=== PATIENT | female | born 1960 | race Caucasian/White ===

== ENCOUNTER 2019-12-03 06:05 | Observation (INO) ==
--- NOTE | 2019-11-16 10:53 | PAT Medication Instructions ---
Medication Instructions Date of Service November 16, 2019 Home Medications atorvastatin 10 mg PO DAILY clindamycin HCl 150 mg PO Q6H duloxetine 60 mg PO BID ibuprofen 800 mg PO Q6H PRN lamotrigine 100 mg PO DAILY naloxegol [Movantik] 25 mg PO QAM omeprazole 40 mg PO oxycodone-acetaminophen 1 tab PO Q6H PRN pregabalin 200 mg PO TID trazodone 100 mg PO HS umeclidinium-vilanterol [Anoro Ellipta] 1 inh INHALATION DAILY Continue as directed clindamycin HCl 150 mg PO Q6H ASK your surgeon for instructions ibuprofen 800 mg PO Q6H PRN DO NOT take the morning of surgery naloxegol [Movantik] 25 mg PO QAM Take morning of surgery With a small sip of water, OTHERWISE NOTHING TO EAT OR DRINK AFTER MIDNIGHT: atorvastatin 10 mg PO DAILY duloxetine 60 mg PO BID lamotrigine 100 mg PO DAILY omeprazole 40 mg PO daily oxycodone-acetaminophen 1 tab PO Q6H PRN (okay to take up to 4 hours prior to surgery if needed) pregabalin 200 mg PO TID umeclidinium-vilanterol [Anoro Ellipta] 1 inh INHALATION DAILY Take evening before surgery duloxetine 60 mg PO BID oxycodone-acetaminophen 1 tab PO Q6H PRN (if needed) pregabalin 200 mg PO TID trazodone 100 mg PO HS Other Notes If you have any questions please call us at [phone] or [phone] or [phone] or [phone]
--- NOTE | 2019-11-19 11:42 | Anesthesiology Consultation ---
Date of Service November 19, 2019 Assessment & Plan (1) Encounter for pre-operative examination: - Awaiting review of preop testing (labs, EKG, CXR). Chart Review Chart Review: Patient seen in Pre Admission Testing Teaching & Discussion Pre-Anesthesia Teaching/Discussion Notes: Instructed NPO after midnight before surgery,except medications with 15 cc of water. Medication instructions provided according to the PAT guidelines. History Surgery Operation Date: 12/03/19 10:20 Proposed Procedures p C5-C6 Anterior Cervical Discectomy Fusion - Eusebio Jamison DO Height/Weight Height: 5 ft 2 in Weight: 79 kg Allergies Allergy/AdvReac Type Severity Reaction Status Date / Time tetanus toxoid, adsorbed Allergy Unknown unknown Verified 11/12/19 12:05 Medications Home Medications Medication Instructions Recorded Confirmed Last Taken atorvastatin 10 mg PO DAILY 11/12/19 11/12/19 Unknown clindamycin HCl 150 mg PO Q6H 11/12/19 11/12/19 Unknown duloxetine 60 mg PO BID 11/12/19 11/12/19 Unknown ibuprofen 800 mg PO Q6H PRN 11/12/19 11/12/19 Unknown lamotrigine 100 mg PO DAILY 11/12/19 11/12/19 Unknown naloxegol [Movantik] 25 mg PO QAM 11/12/19 11/12/19 Unknown omeprazole 40 mg PO DAILY 11/12/19 11/12/19 Unknown oxycodone-acetaminophen 1 tab PO Q6H PRN 11/12/19 11/12/19 Unknown pregabalin 200 mg PO TID 11/12/19 11/12/19 Unknown trazodone 100 mg PO HS 11/12/19 11/12/19 Unknown umeclidinium-vilanterol [Anoro 1 inh INHALATION DAILY 11/12/19 11/12/19 Unknown Ellipta] Past Medical History Medical History (Updated 11/19/19 @ 12:16 by Josie Saenz) Anxiety Chronic obstructive pulmonary disease stable Chronic pain neck pain with left arm/hand radiation Depression GERD (gastroesophageal reflux disease) controlled Hyperlipidemia Obesity Postoperative anemia with most recent back surgery (did not reach threshold needed for transfusion per patient) Exercise / Class Metabolic Activity III < 4 Walking/Shop/Light housework Past Family History Family History Mother Family history of diabetes mellitus Brother Family history of diabetes mellitus Brother Family history of diabetes mellitus Sister Family history of diabetes mellitus Past Surgical History Surgical History History of back surgery X3 History of X3 History of dental surgery 11/06/2019 =- HAD ALL TEETH PULLED [facility] Hx of total hysterectomy Past Anesthesia History No Hx of Anesthesia Complications (except PONV) and No Family Hx of Anesthesia Complications History of PONV History of PONV and Hx of Motion Sickness Social History Smoking Status: Current every day smoker tobacco type: cigarettes and e-cigarettes Smoking cigarettes per day: 5 cigarettes/day + e-cigarettes (tobacco use x 30+ years) Do You Dip or Chew Tobacco: No Hx Alcohol Use: No Hx Substance Use: No Review of Systems Controlled reflux. Patient denies chest pain, shortness of breath, cough, wheezing, palpitations. Physical Exam Vital Signs VITALS BP 139/89 P 76 TEMP 98.0 SP02 95%RA RESP 18 PHYSICAL Full neck and c-spine range of motion (+ cervicalgia with extension). Full TMJ range of motion. TMD 3 finger breaths Mallampati Score 3 Dentition: s/p 15 dental extractions 10/2019- reason for clindamycin which will be completed prior to surgery (+ stitches to come out 11/20)/surgeon office made aware Lungs: clear throughout to auscultation Cardiac: regular rate and rhythm, no murmurs noted Spine: normal Carotid arteries: negative bruit Extremities: no edema
--- NOTE | 2019-11-19 12:42 | XRay Report ---
TWO VIEW CHEST CLINICAL HISTORY: Preoperative examination. FINDINGS: PA and lateral chest radiographs are compared to study dated 06/18/2016. The cardiomediastin al silhouette is unremarkable. There is mild bibasilar atelectasis. The lungs and pleural spaces are otherwise clear. There is no pneumothorax. The skeletal structures are osteopenic. The bony thorax ap pears intact. IMPRESSION: No active disease in the chest. ACT 112: Negative or not required by law. Electronically signed by: Nicola Alvares M.D. 11/19/2019 12:41 PM
[2019-11-19 13:00] LABS: Hematocrit (blood only) 41.6 % (37-47); Mean Corpuscular Hemoglobin 30.7 pg (25-34); Mean Corpuscular Hgb Conc 33.7 g/dL (32-36); Mean Corpuscular Volume 91.2 fL (80-100); Mean Platelet Volume 9.8 fL (7.4-10.4); Platelet Count 247 K/uL (130-400); RDW Coefficient of Variation 13.8 % (11.5-14.5); RDW Standard Deviation 45.7 fL (36.4-46.3); Red Blood Count 4.56 M/uL (4.2-5.4); White Blood Count 13.66 K/uL (4.8-10.8)
[2019-11-19 13:14] LABS: Partial Thromboplastin Ratio 0.8; Partial Thromboplastin Time 22.2 Seconds (21.0-31.0); Prothrombin Time 10.2 Seconds (9.0-12.0)
[2019-11-19 13:27] LABS: BUN Creatinine Ratio 15.8 (10-20); Calcium 9.6 mg/dl (8.5-10.1); Creatinine Clr Calc Pharmacy 58.8 ml/min; Est GFR (African American) 71.8; Est GFR (Non-African American) 61.9; Potassium 3.8 mmol/L (3.5-5.1)
[2019-11-19 14:04] LABS: Basophils # (auto) 0.04 K/uL (0-0.2); Basophils % (auto) 0.3 %; Eosinophils # (auto) 0.13 K/uL (0-0.5); Immature Granulocytes # (auto) 0.07 K/uL (0.00-0.02); Immature Granulocytes % (auto) 0.5 %; Lymphocytes # (auto) 5.35 K/uL (1.2-3.4); Lymphocytes % (auto) 39.2 %; Monocytes # (auto) 1.23 K/uL (0.11-0.59); Neutrophils # (auto) 6.84 K/uL (1.4-6.5)
[~2019-12-03 06:05] MED LIST: ACETAMINOPHEN 500 MG TAB PO SCH; CEFAZOLIN 1000MG 1,000 MG/7.5 ML SYR IV SCH; CeleBREX 200 MG CAP PO SCH; GABAPENTIN 600 MG DOSE PO SCH; LR 15ML/HR IV SCH
[2019-12-03 06:39] LABS: Appearance Urine Clear (Clear); Bacteria Urine Automated Negative (Negative); Bilirubin Urine Negative (Negative); Blood Urine 3+ (Negative); Color Urine Dark Yellow; Glucose Urine UA Negative (Negative); Ketones Urine Negative (Negative); Leukocyte Esterase Urine Negative (Negative); Nitrite Urine Negative (Negative); Protein Urine Negative (Negative); RBC Urine Automated >30 /hpf (0-4); Specific Gravity Urine 1.027 (1.000-1.030); Urobilinogen Urine Negative (Negative)
[2019-12-03] MEDS ORDERED: LIDOCAINE HCL 2% 2 ML VIAL/AMP(20MG/ML) INFIL ONE (06:54)
[2019-12-03] MEDS ORDERED: NEOSTIGMINE METHYLSULFATE 1 MG/ML 10ML VIAL ONE (06:54)
[2019-12-03] MEDS ORDERED: fentaNYL citrate 100 MCG/2 ML VIAL ONE (06:54)
[2019-12-03] MEDS ORDERED: GLYCOPYRROLATE 0.2 MG/ML VIAL ONE ×2 (06:54→08:36)
[2019-12-03] MEDS ORDERED: DEXAMETHASONE SOD INJ 4 MG/ML VIAL ONE (06:54)
[2019-12-03] MEDS ORDERED: ONDANSETRON INJ 2 MG/ML 2 ML VIAL ONE (06:54)
[2019-12-03] MEDS ORDERED: PROPOFOL IV EMULSION 10 MG/ML 20 ML VIAL IV ONE (06:54)
[2019-12-03] MEDS ORDERED: MIDAZOLAM HCL 1 MG/ML 2ML VIAL ONE (06:54)
[2019-12-03] MEDS ORDERED: PROPOFOL IV EMULSION 10 MG/ML 100 ML VIAL IV ONE (06:58)
[2019-12-03] MEDS ORDERED: BACITRACIN INJ 50,000 UNIT VIAL ONE (06:59)
[2019-12-03] MEDS ORDERED: SCOPOLAMINE 1.5 MG TDSY ONE (07:02)
[2019-12-03] MEDS ORDERED: PROMETHAZINE HCL 12.5 MG in SODIUM CHLORIDE 0.9% 50 ML IV PRN ×2 (07:17→10:45)
[2019-12-03] MEDS ORDERED: SCOPOLAMINE 1.5 MG TDSY TD ONE (07:17)
[2019-12-03] MEDS ORDERED: ONDANSETRON INJ 2 MG/ML 2 ML VIAL IV PRN ×2 (07:17→10:45)
[2019-12-03] MEDS ORDERED: ATROPINE SULFATE 0.1 MG/ML 10ML SYR IV PRN (07:17)
[2019-12-03] MEDS ORDERED: ePHEDrine sulfate 50 MG/ML AMP IV PRN (07:17)
--- NOTE | 2019-12-03 07:31 | History & Physical Bridge Note ---
Date of Service December 03, 2019 History & Physical Bridge Note I have examined the patient, reviewed the History & Physical and in the interval since the performance of the History & Physical I have noted the following changes of clinical significance: no changes noted
--- NOTE | 2019-12-03 07:32 | History & Physical Report ---
Date of Service December 03, 2019 Assessment & Plan (1) Cervical stenosis of spinal canal: C5-C6 anterior cervical discectomy and fusion Present on Admission?: Yes History of Present Illness Chief Complaint: Neck and arm pain Primary Care Provider: Alexandra Moe MD This is a 59-year-old female that presents with chronic persistent neck and arm pain. After failing extensive course of nonoperative care is here for surgical intervention. Allergies Allergy/AdvReac Type Severity Reaction Status Date / Time tetanus toxoid, adsorbed Allergy Unknown unknown Verified 12/03/19 06:41 Home Medications Home Medications Medication Instructions Recorded Confirmed Type atorvastatin 10 mg PO DAILY 11/12/19 12/03/19 History duloxetine 60 mg PO BID 11/12/19 12/03/19 History ibuprofen 800 mg PO Q6H PRN 11/12/19 12/03/19 History lamotrigine 100 mg PO DAILY 11/12/19 12/03/19 History naloxegol [Movantik] 25 mg PO QAM 11/12/19 12/03/19 History omeprazole 40 mg PO DAILY 11/12/19 12/03/19 History oxycodone-acetaminophen 1 tab PO Q6H PRN 11/12/19 12/03/19 History pregabalin 200 mg PO TID 11/12/19 12/03/19 History trazodone 100 mg PO HS 11/12/19 12/03/19 History umeclidinium-vilanterol [Anoro 1 inh INHALATION DAILY 11/12/19 12/03/19 History Ellipta] Past Med/Surg History Family History Mother Family history of diabetes mellitus Brother Family history of diabetes mellitus Brother Family history of diabetes mellitus Sister Family history of diabetes mellitus Social History Preferred Language: Bengali Communication Ability: Effective Beliefs That Will Affect Care: None Current Living Situation: Spouse Feels Safe at Home: Yes Safety Concerns: Feels Safe At This Time Smoking Status: Current every day smoker Tobacco Type: cigarettes and e- cigarettes ; Cigarettes Per Day: 5 cigarettes/day + e-cigarettes (tobacco use x 30+ years) ; Do You Dip or Chew Tobacco: No ; Second Hand Exposure: No ; Hx Alcohol Use: No Hx Substance Use: No Physical Exam Physical Exam: Patient is alert and oriented neurologically intact. Results & Data Vital Signs (Past 12 Hours) Vital Signs Temp Pulse Resp BP Pulse Ox 12/03/19 06:47 36.5 C 72 18 139/86 97
[2019-12-03] MEDS ORDERED: CHECK SCOPOLAMINE PATCH PLACEMENT SCH (08:00)
[2019-12-03] MEDS ORDERED: CEFAZOLIN 250 MG/ML 1 GM VIAL ONE (08:16)
[2019-12-03] MEDS ORDERED: ROCURONIUM BROMIDE 10 MG/ML 5 ML VIAL ONE (08:16)
[2019-12-03] MEDS ORDERED: SUCCINYLCHOLINE CHLORIDE 20 MG/ML 10 ML VIAL ONE (08:16)
[2019-12-03] MEDS ORDERED: HYDROmorphone INJ 2 MG/ML SYR/VIAL ONE (08:23)
[2019-12-03] MEDS ORDERED: FLOSEAL HEMOSTATIC MATRIX 10ML TOP ONE (08:26)
[2019-12-03] MEDS ORDERED: CEFAZOLIN 1000MG 1,000 MG/7.5 ML SYR IV ONE (08:27)
--- NOTE | 2019-12-03 08:49 | Operative Report ---
Post Operative Report Pre & Post Diagnosis Operation Date: 12/03/19 07:45 Pre-Op Diagnosis: Spinal Stenosis, Cervical Region Post-Op Diagnosis: Spinal Stenosis, Cervical Region I identified the patient and participated in the time-out.: Yes Procedure Operation Date: 12/03/19 07:45 Actual Procedures #1 anterior cervical discectomy with bilateral foraminotomies C5-6. #2 anterior cervical arthrodesis C5-6. #3 placement of Spira cage 7 mm in height filled with DBM at C5-6. #4 application of turcios plate and screws across C5-6. Surgeon Eusebio Jamison, Customer Relations Assistant Emily Simon Estimated Blood Loss 10 Findings Consistent with Post-Op Diagnosis Specimens None Indications This is a 59-year-old female that presents with chronic persistent neck and arm symptoms after failed extensive course of nonoperative care is here for surgical invention. Description of Procedure Patient was met with identified informed consent obtained. 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 All bony prominences well- padded eyes inspected to ensure no external pressure placed upon. This point the anterior cervical spine was prepped and draped in a sterile fashion. The assistance of fluoroscopy identified the C5-6 displacement transverse incision was placed along the right anterior aspect of the cervical spine overlying his region. Sharp dissection with assistance of bipolar electrocautery was performed down to and exposing C5-6 disc space. I then performed a complete discectomy to the uncovertebral joints bilaterally. This included removal of all posterior annular fibers longitudinal ligament. Heath distracting pins were used to assist in visualization. Her after complete decompression the endplates were burred to subcortical bleeding bone and a 7 mm Spira cage filled with DBM tapped in position. Distraction apparatus was removed and a 14 mm turcios plate and screws applied with the assistance of fluoroscopy. Incision was then copiously irrigated explored to ensure no damage to surrounding structures remaining bleeding. 10 round BRENDA drain inserted. Incision was then closed with 2 Vicryl in a fashion of 4 Monocryl for final skin closure. Steri- Strip sterile dressings placed. Patient will continue PACU stable addition. Please note Emily Simon was present at the entire procedure involved the patient positioning complex portions of the surgery and final skin closure. Lastly spinal cord monitoring was utilized that the procedure no changes noted. I attest to the content of the Intraoperative Record and any orders documented therein. Any exceptions are noted below.
--- NOTE | 2019-12-03 09:16 | Fluoroscopy Report ---
FL cervical 2-3V HISTORY: 59 years-old Female ACDF C5-6 chronic neck pain COMPARISON: None available TECHNIQUE: 2 spot fluoroscopic images of the cervical spine were obtained utilizing 6.0 seconds fluor oscopy time FINDINGS: Multilevel spondylitic spurring and facet arthrosis. Anterior plate and screw fusion hardware with di scectomy changes noted at the C5-C6 level. Soft tissue partially obscures the lateral projection. As visualized, alignment appears satisfactory without acute fracture identified. Surgical drainage laura ter is noted. IMPRESSION: Fluoroscopic assistance as above. Please see operative report for further details. ACT 112: Negative or not required by law. The above report was generated using voice recognition software. It may contain grammatical, syntax o r spelling errors. Electronically signed by: Rich Bryan M.D. 12/03/2019 9:15 AM
[2019-12-03] MEDS: fentaNYL citrate 100 MCG/2 ML VIAL IV PRN ×2 (09:21→09:26)
[2019-12-03] MEDS: HYDROmorphone INJ 2 MG/ML SYR/VIAL IV PRN ×3 (09:35→09:47)
--- NOTE | 2019-12-03 09:53 | Anesthesiology Progress Note ---
Date of Service December 03, 2019 Anesthesia Post Procedure Vital Signs Vital Signs: Temp Pulse Pulse Resp BP Pulse Ox 12/03/19 09:40 54 L 13 143/83 H 99 12/03/19 09:30 56 L 12 164/86 H 99 12/03/19 09:20 68 16 163/95 H 100 12/03/19 09:10 82 16 162/84 H 99 12/03/19 09:04 36.1 C L 90 12 169/91 H 99 12/03/19 06:47 36.5 C 72 18 139/86 97 Pain Intensity Left Arm: Pain Intensity: 5 Neck: Pain Intensity: 6 Transfer of Care Handoff Completed per policy Notes Mental Status: alert / awake / arousable and participated in evaluation Patient Amnestic to Procedure: Yes Nausea / Vomiting: adequately controlled Pain: adequately controlled Airway Patency, RR, SpO2: stable & adequate BP & HR: stable & adequate Hydration State: stable & adequate Anesthetic Complications: no major complications apparent and Pt Satisfied with anesthetic care
[2019-12-03] MEDS ORDERED: DO NOT ADMINISTER PNEUMOCOCCAL VACCINE PRN (10:45)
[2019-12-03] MEDS ORDERED: ACETAMINOPHEN 1,000 MG/100 ML VIAL IV PRN (10:45)
[2019-12-03] MEDS ORDERED: HYDROmorphone INJ 0.5 MG/0.5 ML SYR IV PRN (10:45)
[2019-12-03] MEDS ORDERED: TRAMADOL HCL 50 MG TABLET PO PRN (10:45)
[2019-12-03] MEDS ORDERED: ONDANSETRON 4 MG OD TAB PO PRN (10:45)
[2019-12-03] MEDS ORDERED: METOCLOPRAMIDE HCL INJ 5 MG/ML 2 ML VIAL IV PRN (10:45)
[2019-12-03] MEDS ORDERED: RACEPINEPHRINE 2.25% NEBU SOLN 0.5 ML VIAL INH PRN (10:45)
[2019-12-03] MEDS ORDERED: ALUMINUM/MAGNESIUM SUSP 30 ML UDC PO PRN (10:45)
[2019-12-03] MEDS ORDERED: DEXAMETHASONE SOD PHOSPHATE 8 MG in SYRINGE 0 ML IV PRN (10:45)
[2019-12-03] MEDS ORDERED: ACETAMINOPHEN 500 MG TAB PO PRN (10:45)
[2019-12-03] MEDS ORDERED: LORazepam 0.5 MG TAB PO PRN (10:45)
[2019-12-03] MEDS ORDERED: LORazepam 0.5 MG/1 ML VIAL IV PRN (10:45)
[2019-12-03] MEDS ORDERED: DO NOT ADMINISTER FLU VACCINE PRN (10:45)
[2019-12-03] MEDS ORDERED: HYDROmorphone INJ 1 MG/ML SYRINGE IV PRN (10:45)
[2019-12-03] MEDS ORDERED: OXYCODONE HCL IR 5 MG TAB (IMMEDIATE RELEASE) PO PRN (10:45)
[2019-12-03] MEDS ORDERED: DULOXETINE HCL 60 MG CAP PO SCH (10:45)
[2019-12-03] MEDS ORDERED: SOD PHOSPHATE/SOD BIPHOSPHATE ENEMA 132 ML BTL PR PRN (10:45)
[2019-12-03] MEDS ORDERED: MAGNESIUM HYDROXIDE SUSP 30 ML UDC PO PRN (10:45)
[2019-12-03] MEDS ORDERED: lamoTRIgine 100 MG TAB PO SCH (10:45)
[2019-12-03] MEDS ORDERED: FAMOTIDINE 20 MG TAB PO PRN (10:45)
[2019-12-03] MEDS ORDERED: NALOXONE HCL 0.4 MG/1 ML VIAL/CARP IV PRN (10:45)
[2019-12-03] MEDS ORDERED: ATORVASTATIN 10 MG TAB PO SCH (10:45)
[2019-12-03] MEDS ORDERED: UMECLIDINIUM/VILANTEROL 62.5/25MCG 7 PUFFS/INHALER INH ONE (11:07)
[2019-12-03] MEDS: LACTATED RINGER'S 1,000 ML IV SCH ×2 (11:21→21:21)
[2019-12-03] MEDS ORDERED: PANTOprazole 40 MG TAB PO SCH (11:30)
[2019-12-03] MEDS: PREGABALIN 100 MG CAP PO SCH ×2 (13:45→21:25)
[2019-12-03] MEDS: CEFAZOLIN 2000MG 2,000 MG/15 ML SYR IV SCH (16:33)
[2019-12-03] MEDS ORDERED: TRAZODONE HCL 100 MG TAB PO SCH (21:00)
[2019-12-03] MEDS ORDERED: DOCUSATE SODIUM/SENNA 50/8.6MG TAB PO SCH (21:00)
[2019-12-03] MEDS: DULOXETINE HCL 60 MG CAP PO SCH (21:22)
[2019-12-04] MEDS: CEFAZOLIN 2000MG 2,000 MG/15 ML SYR IV SCH (00:13)
[2019-12-04] MEDS: LACTATED RINGER'S 1,000 ML IV SCH (06:56)
--- NOTE | 2019-12-04 07:55 | Anesthesiology Progress Note ---
Date of Service December 04, 2019 Anesthesia Post Procedure Vital Signs Vital Signs: Temp Pulse Pulse Pulse Resp BP Pulse Ox 12/04/19 07:30 68 18 92 12/04/19 07:17 36.5 C 82 18 133/76 94 12/04/19 05:45 36.4 C L 67 18 120/76 98 12/04/19 03:30 36.6 C 75 16 122/86 94 12/04/19 03:20 73 16 95 12/04/19 01:25 36.4 C L 67 18 104/69 95 12/03/19 23:20 36.5 C 77 16 108/68 97 12/03/19 22:10 84 16 96 12/03/19 21:27 36.5 C 76 16 113/73 95 12/03/19 19:18 36.4 C L 75 16 104/69 94 12/03/19 17:28 36.5 C 16 L 82 16 109/73 96 12/03/19 16:15 84 16 93 12/03/19 15:39 36.4 C L 90 18 116/77 95 12/03/19 13:36 36.5 C 79 16 119/80 96 12/03/19 12:34 36.5 C 86 16 121/78 97 12/03/19 11:33 36.4 C L 75 16 131/77 96 12/03/19 11:01 36.7 C 64 16 134/84 97 12/03/19 10:38 74 18 98 12/03/19 10:30 36.6 C 61 16 152/82 H 99 12/03/19 10:20 61 15 147/82 H 97 12/03/19 10:10 36.5 C 57 L 14 135/86 98 12/03/19 10:00 55 L 12 151/82 H 99 12/03/19 09:50 57 L 12 151/86 H 99 12/03/19 09:40 54 L 13 143/83 H 99 12/03/19 09:30 56 L 12 164/86 H 99 12/03/19 09:20 68 16 163/95 H 100 12/03/19 09:10 82 16 162/84 H 99 12/03/19 09:04 36.1 C L 90 12 169/91 H 99 Pain Intensity Left Arm: Pain Intensity: 3 Neck: Pain Intensity: 3 Transfer of Care Handoff Completed per policy Notes Mental Status: alert / awake / arousable Patient Amnestic to Procedure: Yes Nausea / Vomiting: adequately controlled Pain: adequately controlled Anesthetic Complications: no major complications apparent and Pt Satisfied with anesthetic care
[2019-12-04] MEDS ORDERED: POLYETHYLENE (MIRALAX) 17 GM PACK PO SCH (08:50)
[2019-12-04] MEDS: DULOXETINE HCL 60 MG CAP PO SCH (08:57)
--- NOTE | 2019-12-04 08:59 | Discharge Summary ---
Date of Service December 04, 2019 Admission HPI Per Admitting Provider This is a 59-year-old female that presents with chronic persistent neck and arm pain. After failing extensive course of nonoperative care is here for surgical intervention. Principal Diagnosis Cervical spinal stenosis with radiculopathy Discharge Data Allergies Allergy/AdvReac Type Severity Reaction Status Date / Time tetanus toxoid, adsorbed Allergy Unknown unknown Verified 12/03/19 06:41 Procedures Performed Operation Date: 12/03/19 07:45 Actual Procedures p C5-C6 Anterior Cervical Discectomy Fusion, Spinal Cord Monitoring(Not Applicable) - Eusebio Jamison DO Ordered Studies 12/03/19 07:45 FL cervical 2-3V Routine FL fluoroscopy <1hr Routine Hospital Course (1) Cervical stenosis of spinal canal: Patient went anterior cervical discectomy fusion tolerated well second orthopedic for postoperative. Postop day 1 arm symptoms are markedly improved. Swallowing well. No hoarseness. BRENDA drain decreasing probably. Excellent strength testing. Subsequently discharged home. Discharge orders instructions on the chart for further review. Total Time Total Time Spent Total Time Spent (In Minutes): 20 minutes Discharge Plan Discharge Items Patient Disposition: Home - Self-Care Reason For Visit: Spinal Stenosis, Cervical Region Discharge Diagnosis: Cervical spinal stenosis with radiculopathy Activity: As commented below Non-emergency contact: Primary Care Provider Call non-emergency contact if: you have any medication questions Follow-up/Referrals: Alexandra Moe MD [Primary Care Provider] - Diet: Regular Addtl Attending Provider Instructions: ACTIVITY RECOMMENDATIONS: SELF CARE INSTRUCTIONS AFTER CERVICAL FUSIONS 1. No smoking. Smoking drastically decreases the chance of a solid fusion. 2. No bending, lifting more than 5 pounds, or twisting (roll like a log when turning in bed). 3. You may shower 3 days after surgery. Thoroughly dry wound. Do not soak in the tub. 4. Cervical collar: Must be worn at all times including sleeping. You may remove the brace only to bath, eat and if you are sitting in a recliner. 5. Please walk as much as you can for exercise. Gradually increase the distance that you walk as your endurance increases. SPECIAL CARE INSTRUCTIONS: VERY IMPORTANT TO READ AND REVIEW A. Do not take any anti-inflammatory medications (i.e. Indocin, Advil, Aspirin, Naprosyn, Aleve, Motrin, etc.) as these may inhibit the chance of a solid fusion. Tylenol is okay to take. B. Your surgical incision has been closed with a cosmetic suture under the skin that will dissolve in about 6 weeks. In 14 days, you can use a pair of clean scissors and cut the suture that is left outside of the skin at the ends of your incision. C. Complications are uncommon, but please contact us if you have any signs or symptoms of: 1. wound infection (fever higher than 102.5 degrees F, redness, separation of wound, drainage, or increasing pain from the incision) 2. blood clots in legs (pain, swelling, redness and warmth in legs) 3. urinary tract infection (fever higher than 102.5 degrees, burning upon urination or increased frequency of urination) 4. nerve problems (inability to walk on your toes or heels, numbness, loss of bowel or bladder control) 5. any other symptoms that concern you. D. Please call the office at if you have any concerns or questions about your operation or recovery. MANAGING PAIN AFTER SPINAL SURGERY 1. Narcotic medication is intended for short-term use and will be provided for surgical pain. Surgical pain usually lasts for a period of 4-6 weeks. Narcotic medication includes Percocet, Vicodin, Darvocet, Tylenol #3 or Lortab. 2. Longer-term pain is more appropriately treated with non-narcotic medication such as Tylenol ES. 3. Muscle spasm is not appropriately treated with narcotics. Muscle relaxers such as Soma, Flexeril or Skelaxin can be used along with Tylenol ES. 4. Remember that we all live with some "aches and pains". This is not unusual or uncommon after an injury or as we get older. 5. We will provide appropriate medication within the normal guidelines of their prescribed use. We will also be very cautious and aware of potential abuse and extended duration of patients' medication needs. 6. Please allow 2-3 days to process refills. Prescriptions will not be mailed but must be picked up at the office. FOLLOW UP VISIT: Keep your scheduled follow-up appointment. Any questions, please call the office at . Pending Studies at Discharge: No Stand-Alone Forms: My [employer], Smoking Cessation Medications and DC Order Prescriptions: New tramadol 50 mg tablet 50 mg PO Q6H PRN (Reason: pain, moderate) Qty: 10 RF: 0 oxycodone 5 mg tablet 5 mg PO Q6H PRN (Reason: pain, severe) Qty: 10 RF: 0 Continued atorvastatin 10 mg Tablet 10 mg PO DAILY RF: 0 omeprazole 40 mg Capsule,Delayed Release(Dr/Ec) 40 mg PO DAILY RF: 0 oxycodone-acetaminophen 10-325 mg Tablet 1 tab PO Q6H PRN (Reason: Pain) RF: 0 trazodone 100 mg Tablet 100 mg PO HS RF: 0 lamotrigine 100 mg Tablet 100 mg PO DAILY RF: 0 pregabalin 200 mg Capsule 200 mg PO TID RF: 0 duloxetine 60 mg Capsule, Delayed Rel Sprinkle 60 mg PO BID RF: 0 Anoro Ellipta 62.5-25 mcg/actuation Blister With Device 1 inh INHALATION DAILY RF: 0 Movantik 25 mg Tablet 25 mg PO QAM RF: 0 ibuprofen 800 mg Tablet 800 mg PO Q6H PRN (Reason: PAIN ) RF: 0 Discharge Orders: Discharge Order (Routine); Ordered 12/04/19 Ordered By: Eusebio Jamison Admission Data Admit Date/Time: 12/03/19 09:09 Attending Provider: Eusebio Jamison Admit Provider: Eusebio Jamison Primary Care Provider: Alexandra Moe
[2019-12-04] MEDS ORDERED: PANTOprazole 40 MG TAB PO SCH (09:00)
[2019-12-04] MEDS ORDERED: UMECLIDINIUM/VILANTEROL 62.5/25MCG 7 PUFFS/INHALER INH SCH (09:00)
[2019-12-04] MEDS ORDERED: ATORVASTATIN 10 MG TAB PO SCH (09:00)
[2019-12-04] MEDS ORDERED: lamoTRIgine 100 MG TAB PO SCH (09:00)
[2019-12-04] MEDS: PREGABALIN 100 MG CAP PO SCH (09:03)
[2019-12-05] MEDS ORDERED: bisacodyL 10 MG SUPP PR PRN (08:50)
== END 2019-12-04 10:48 | disposition home or self-care (01) | DRG 473 ==
LOC: ASU 06:05 → INTOOBSV 09:09 → 3E 09:09